=== PATIENT | female | born 1970 | race Caucasian/White ===

== ENCOUNTER 2024-05-02 10:20 | Emergency (ER) | payer OTHER, SELFPAY ==
[2024-05-02 10:53] LABS: EDUAAPPEAR Cloudy; EDUABILI 1+ (Negative); EDUABLOOD 2+ (Negative); EDUACOLOR1 Orange; EDUAGLUCOSE Trace (Negative); EDUAKETONE Negative (Negative); EDUALEUKO 3+ (Negative); EDUANITRATE Positive (Negative); EDUAPROTEIN 3+ (Negative)
[2024-05-02 11:00] VITALS: BP 142/80; PULSE 79; RESP 20; TEMP 36.6; O2SAT 99
--- NOTE | 2024-05-02 12:16 | ED_ITS ---
HPI - General Adult General Chief complaint: Urogenital-Female Stated complaint: Urinary Problem Source: patient Mode of arrival: ambulatory Limitations: no limitations History of Present Illness HPI narrative: Patient presents for evaluation of urinary symptoms for last 4 days. Symptoms include dysuria, foul-smelling urine, urinary frequency, suprapubic discomfort, bilateral flank pain and nausea. Pt denies any fever, chills,vomiting, hematuria, vaginal bleeding or discharge. She has a history of urinary tract infections. She took one dose of cipro she had leftover in the home. Related Data Allergies Allergy/AdvReac Type Severity Reaction Status Date / Time No Known Allergies Allergy Verified 05/02/24 11:07 Review of Systems Review of Systems: CONSTITUTIONAL: Denies fever, chills, or sweats. EYES: Denies visual changes, redness, or discharge. ENT: Denies rhinorrhea, congestion, sore throat, or otalgia. CARDIOVASCULAR: Denies chest pain, palpitations, or edema. RESPIRATORY: Denies cough or dyspnea. GASTROINTESTINAL: reports nausea. Denies vomiting or diarrhea. GENITOURINARY: Reports suprapubic pain, bilateral flank plain, dysuria, urinary frequency, and foul-smelling urine. SKIN: Denies rash or itching. MUSCULOSKELETAL: Denies joint pain or myalgia. NEUROLOGIC: Denies headache, numbness, dizziness, or weakness. PSYCHIATRIC: Denies anxiety or depression. PMFSH Past Medical History Medical History UTI (urinary tract infection) Surgical History Surgical History No pertinent past surgical history Family History Family History Mother Family history non-contributory Social History Social History Smoking packs per day: 0.75 Smoking cigarettes per day: 15.0 Smoking status: Current every day smoker Tobacco type: cigarettes Substance use: never Living arrangements: with family Gender identity (if verbalized by the patient): Female Spiritual care concerns: No Exam Narrative: GENERAL: Well-appearing, well-nourished, and in no acute distress. HEAD: Normocephalic, atraumatic. EYES: PERRLA and EOMI. ENT: Nares clear, no rhinorrhea or epistaxis. Mucous membranes moist. Oropharynx without tonsillar hypertrophy exudate or other lesions. Bilateral TMs pearly hickman nonbulging NECK: Supple. No adenopathy or masses. No carotid bruits or JVD CHEST: Clear to auscultation. No respiratory distress. No wheezes rales or rhonchi HEART: Regular rate and rhythm. No murmur heard. Normal peripheral pulses. ABDOMEN: Soft, nondistended, normal active bowel sounds. Mild suprapubic tenderness without rebound or guarding. No CVA tenderness EXTREMITIES: Normal range of motion. No edema. SKIN: Warm, dry, no rash. NEURO: No focal deficits. Alert and oriented x3. PSYCH: Normal mood and affect. Course Course Emergency Course: This is a 53-year-old female who presented for evaluation of urinary symptoms. Urine today +nitrites. Will send for culture. Start bactrim. Will also dc with pyridium and zofran. Increase hydration. She should follow up with her urologist, Dr Rosa. If she develops a fever, intractable vomiting or worsening symptoms she should go to the ER. She is in agreement with plan of care. Level of Care: Express Care Visit Vital Signs Vital signs: Vital Signs Temperature 36.6 C 05/02/24 11:00 Pulse Rate 79 05/02/24 11:00 Respiratory Rate 20 05/02/24 11:00 Blood Pressure 142/80 H 05/02/24 11:00 Pulse Oximetry 99 05/02/24 11:00 Oxygen Delivery Room Air 05/02/24 11:00 Temperature 36.6 C 05/02/24 11:00 Pulse Rate 79 05/02/24 11:00 Respiratory Rate 20 05/02/24 11:00 Blood Pressure 142/80 H 05/02/24 11:00 Pulse Oximetry 99 05/02/24 11:00 Oxygen Delivery Room Air 05/02/24 11:00 Medical Decision Making Vital Signs Vital Signs: Vital Signs Temperature 36.6 C 05/02/24 11:00 Pulse Rate 79 05/02/24 11:00 Respiratory Rate 20 05/02/24 11:00 Blood Pressure 142/80 H 05/02/24 11:00 Pulse Oximetry 99 05/02/24 11:00 Oxygen Delivery Room Air 05/02/24 11:00 Temperature 36.6 C 05/02/24 11:00 Pulse Rate 79 05/02/24 11:00 Respiratory Rate 20 05/02/24 11:00 Blood Pressure 142/80 H 05/02/24 11:00 Pulse Oximetry 99 05/02/24 11:00 Oxygen Delivery Room Air 05/02/24 11:00 Lab Data Labs: Lab Results 05/02/24 Range/Units 10:40 POC Urine Color [place] POC Urine Clarity Cloudy POC Urine pH 6.0 POC Ur Specif [place] 1.030 POC Urine Protein 3+ (Negative) POC Ur Glucose (UA) Trace (Negative) POC Urine Ketones Negative (Negative) POC Urine Blood 2+ (Negative) POC Urine Nitrite Positive (Negative) POC Urine Bilirubin 1+ (Negative) POC Urine Urobilinogen 2.0 POC U Leukocyte Esteras 3+ (Negative) Discharge Plan Discharge Clinical Impression: UTI (urinary tract infection) Patient Disposition: Home, Self-Care Condition: Stable Instructions: Antibiotic Form, Urinary Tract Infection in Women (DC) Patient Language: [place] Prescriptions: New nitrofurantoin monohyd/m-cryst [Macrobid] 100 mg capsule 100 mg PO Q12H 7 Days Qty: 14 0RF Rx Instructions: must administer with a meal/food phenazopyridine [Pyridium] 200 mg tablet 200 mg PO TID Qty: 6 0RF ondansetron 4 mg tablet,disintegrating 4 mg PO Q6H PRN (Reason: nausea and vomiting) Qty: 15 0RF Follow-up/Referrals: Yana Rosa MD [Physician] - Time of Disposition: 12:11
== END 2024-05-02 12:22 | disposition home or self-care (01) ==
PROVIDERS: Emergency Provider Nurse Practitioner
DX: N39.0 Urinary tract infection, site not specified (principal); F17.210 Nicotine dependence, cigarettes, uncomplicated
CPT/HCPCS: 81003; 87086; 99213; G0463